=== PATIENT | male | born 1990 | race Caucasian/White ===

== ENCOUNTER → 2017-06-07 12:47 | Emergency (ER) | payer OTHER ==
[~2017-06-07 12:47] MED LIST: Ibuprofen TAB* 800 MG PO ONE
[2017-06-07 12:52] VITALS: BP 136/81
--- NOTE | 2017-06-07 13:23 | ED ---
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 [place]kin a few "pops" and thinks he broke it. Denies numbness, tingling, weakness and denies other areas of pain/injury. Has not tried anything for this prior to arrival. Worse w/ moving fingers and wrist here , better w/ rest. - History of Current Complaint Chief Complaint: EDExtremityUpper Stated Complaint: BROKEN RIGHT HAND Time Seen by Provider: 06/07/17 13:01 Hx Obtained From: Patient - Allergies/Home Medications Allergies/Adverse Reactions: Allergies Allergy/AdvReac Type Severity Reaction Status Date / Time No Known Allergies Allergy Verified 06/07/17 12:50 PMH/Surg Hx/FS Hx/Imm Hx Previously Healthy: Yes Endocrine/Hematology History: Denies: Hx Anticoagulant Therapy, Hx Blood Disorders Musculoskeletal History: Denies: Hx of Fracture(s) Infectious Disease History: No Infectious Disease History: Denies: Traveled Outside the [place] in Last 30 Days - Family History Known Family History: Positive: None - Social History Occupation: Employed Part-time - works in dining spencer at [employer] Lives: Dormitory/Roommates - [employer] Alcohol Use: None Hx Substance Use: No Substance Use Type: Reports: None Hx Tobacco Use: Yes Amount Used/How Often: >1 PPD Review of Systems Constitutional: Negative Eyes: Negative ENT: Negative Cardiovascular: Negative Respiratory: Negative Gastrointestinal: Negative Positive: no symptoms reported Positive: Arthralgia, Myalgia, Decreased ROM, Edema Positive: Bruising Neurological: Negative Psychological: Normal All Other Systems Reviewed And Are Negative: Yes Physical Exam Triage Information Reviewed: Yes Vital Signs On Initial Exam: Initial Vitals Temp Pulse Resp BP Pulse Ox 98.3 F 65 20 136/81 100 06/07/17 12:50 06/07/17 12:50 06/07/17 12:50 06/07/17 12:50 06/07/17 12:50 Vital Signs Reviewed: Yes Appearance: Positive: Well-Appearing, No Pain Distress, Well-Nourished Skin: Positive: Warm, Dry - Rt lateral hand w/ edema and mild erythema - no skin breakdown Head/Face: Positive: Normal Head/Face Inspection Eyes: Positive: EOMI ENT: Positive: Hearing grossly normal Respiratory/Lung Sounds: Positive: Breath Sounds Present Cardiovascular: Positive: Pulses are Symmetrical in both Upper and Lower Extremities Musculoskeletal: Positive: Strength/ROM Intact - Rt shoulder/elbow, Pain @ - movement of Rt wrist, phalanges - 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 Course/Dx - Course Course Of Treatment: Rt hand XR report and image reviewed - no fx, no dislocation. Suspect contusion, possibly sprain of hand. F/u w/ medical staff and ortho if necessary. DAnger s/sx of when to return to ED reviewed. Paperwork completed. - Diagnoses Provider Diagnoses: Sprain of right hand, Contusion of right hand Discharge - Discharge Plan Condition: Stable Disposition: HOME Patient Education Materials: Hand Sprain (ED) Forms: *Work Release Referrals: Mini BRUNER,Dori Gilbert [Primary Care Provider] - Additional Instructions: You appear to have a sprain of your right hand. This may be managed with rest, ice, elevation and ibuprofen. An BETH wrap has been applied to reduce swelling and help with pain. You will be on light duty with this hand until cleared by medical staff. *If wrist pain persists, you may benefit from repeat wrist XR in 7-10 days. This may be ordered by medical staff on an outpatient basis.
--- NOTE | 2017-06-07 13:50 | RAD ---
HISTORY: Right hand pain, trauma COMPARISONS: None VIEWS: 4, Frontal, lateral, and oblique views of the right hand FINDINGS: The study is technically limited BONE DENSITY: Normal. BONES: There is no displaced fracture. JOINTS: There is no arthropathy. ALIGNMENT: There is no dislocation. SOFT TISSUES: Unremarkable. OTHER FINDINGS: None. IMPRESSION: NO ACUTE OSSEOUS INJURY. IF SYMPTOMS PERSIST, RECOMMEND REPEAT IMAGING.
== END | disposition home or self-care (01) ==
LOC: ED 12:47
DX: S63.91XA Sprain of unspecified part of right wrist and hand, initial encounter (principal); S60.221A Contusion of right hand, initial encounter; W22.8XXA Striking against or struck by other objects, initial encounter; Y93.9 Activity, unspecified; Y92.9 Unspecified place or not applicable
CPT/HCPCS: 99281; A9270-GY